=== PATIENT | female | born 1960 | race Caucasian/White ===

== ENCOUNTER 2023-08-29 20:54 | Emergency (ER) | payer SELFPAY ==
[2023-08-29 20:55] VITALS: BP 171/92; PULSE 113; RESP 20; TEMP 36.9; O2SAT 95; BMI 39.7
--- NOTE | 2023-08-29 21:01 | ECG_ITS ---
[facility] Test Date: 2023-08-29 Pat Name: BEATRICE SU Department: Room: - Gender: Female Field Advisor: : 1960 Requested By: 0923 Order Number: [id number] Reading MD: CLARICE BETANCOURT Measurements Intervals [place] Rate: 104 P: 53 TN: 150 QRS: 11 QRSD: 72 T: 64 QT: 330 QTc: 390 Interpretive Statements 1120 Sinus tachycardia 4068 Nonspecific [place] abnormality 8102 Low QRS voltage in chest leads 9140 abnormal rhythm ECG No previous ECG available for comparison Electronically Signed On 08-30-2023 17:53:39 EST by CLARICE BETANCOURT
--- NOTE | 2023-08-29 21:01 | CT_ITS ---
[address] [address] Patient Name: BEATRICE SU MRN: [id number] date: 1960 Sex: F Assigned Patient Location: ER Current Patient Location: Accession/Order Number: [id number] Exam Date: 08/29/2023 21:46 Report Date: 08/29/2023 22:12 At the request of: WILLIAM PERKINS Procedure: CT abdomen pelvis wo con EXAMINATION: CT abdomen pelvis wo con HISTORY: stents ; recent left ureteral stent placement; nausea, weakness, diarrhea EXAMINATION: CT abdomen pelvis wo con COMPARISON: CT abdomen pelvis 06/20/2022 TECHNIQUE: Axial, Coronal, and Sagittal images were obtained without and/or with IV contrast as indicated by examination type. Dose reduction techniques were achieved by using automated exposure control and/or adjustment of mA and/or kV according to patient size and/or use of iterative reconstruction technique. FINDINGS: LUNG BASES: No visible pulmonary or pleural disease. LIVER: No enlargement, atrophy, suspicious density, or significant focal lesion. BILIARY: Cholecystectomy. PANCREAS: No lesion, fluid collection, or abnormal duct dilatation. SPLEEN: No enlargement or focal lesion. ADRENALS: No mass or enlargement. KIDNEYS: Mild stranding and edema surrounding the left kidney. Mild haziness of the fat within the renal hilum. Ureteral stents appears to be in good position. Mild periureteral stranding. No stones, obstructive uropathy, or appreciable mass. BOWEL/MESENTERY: No visible mass, obstruction, or bowel wall thickening. Normal appendix. AORTA/VASCULAR: No aneurysm or dissection. RETROPERITONEUM: No mass or adenopathy. LYMPH NODES: No adenopathy. URINARY BLADDER: Trace amount of free air within urinary bladder, likely secondary to recent left ureter stent placement. PELVIC ORGANS: No visible mass. Pelvic organs appropriate for patient age. ABDOMINAL WALL: Small fat filled indirect right inguinal hernia without strangulation or bowel involvement. BONES: L5-S1 marked degenerative disc disease. OTHER: Negative. CT/CT abdomen pelvis wo con IMPRESSION: 1. Mild left perinephric stranding and periureteral stranding likely residual from recent hydronephrosis with subsequent stent placement and stone removal (per patient history). 2. Left hilar nephritis is not completely excluded, but felt less likely. 3. Left inguinal hernia without strangulation or bowel involvement. 4. L5-S1 marked degenerative disc disease. Electronically authenticated by: CHANTEL HENDERSON Date: 08/29/2023 22:12
[2023-08-29 21:23] LABS: Basophils Percent Auto 0.3 % (0.2-2.0); Eosinophils Absolute Auto 0.1 10^3/uL (0.0-0.7); Eosinophils Percent Auto 0.7 % (0.9-7.0); Hematocrit 38.5 % (36.0-48.0); Hemoglobin 12.7 g/dL (12.0-16.0); Immature Granulocytes Abs Auto 0.13 10^3/uL (0.00-0.03); Lymphocytes Absolute Auto 1.2 10^3/uL (1.2-3.8); Lymphocytes Percent Auto 9.5 % (20.5-60.0); Mean Corpuscular Hemoglobin 29.7 pg (26.7-34.0); Mean Platelet Volume 10.8 fL (9.5-13.5); Monocytes Absolute Auto 1.2 10^3/uL (0.3-0.8); Monocytes Percent Auto 9.6 % (1.7-12.0); Neutrophils Absolute Auto 9.9 10^3/uL (1.4-6.5); Neutrophils Percent Auto 78.9 % (43.0-75.0); Platelet Count 289 10^3/uL (150-450); Red Blood Count 4.28 10^6/uL (4.20-5.40); Red Cell Distribution Width 13.5 % (11.0-15.0); White Blood Count 12.6 10^3/uL (4.0-11.0)
[2023-08-29] MEDS: 0.9 % SODIUM CHLORIDE 1,000 ML 1000 ML IV (21:27)
[2023-08-29] MEDS: ONDANSETRON PF 4 MG/2 ML VIAL IV (21:27)
[2023-08-29 21:39] LABS: Alanine Aminotransferase 20 U/L (14-59); Albumin Globulin Ratio 0.6; Albumin Level 2.8 g/dL (3.4-5.0); Alkaline Phosphatase 64 U/L (46-116); Anion Gap 17.7; Aspartate Amino Transferase 52 U/L (15-37); BUN Creatinine Ratio 12.9; Bilirubin Total 0.9 mg/dL (0.2-1.0); Calcium 8.6 mg/dL (8.5-10.1); Carbon Dioxide 19.9 mmol/L (21.0-32.0); Chloride 97 mmol/L (98-107); Estimated GFR (African America >60 (>=60); Estimated GFR (Non-African Ame 55 (>=60); Globulin 4.6 g/dL; Glucose 253 mg/dL (74-106); Potassium 4.6 mmol/L (3.5-5.1); Sodium 130 mmol/L (136-145); Total Protein 7.4 g/dL (6.4-8.2); Troponin I High Sensitivity 4.2 pg/mL (4.0-51.3)
[2023-08-29 21:45] LABS: Lactate/Lactic Acid 2.1 mmol/L (0.4-2.0)
--- NOTE | 2023-08-29 21:48 | PC.NURSE ---
Caryn from lab called with lactic 2.1 provider aware
[2023-08-29 21:58] VITALS: BP 156/77; PULSE 100; RESP 20; O2SAT 96
[2023-08-29 22:18] LABS: SARS-CoV-2 Ag NEGATIVE (NEGATIVE)
--- NOTE | 2023-08-29 23:20 | ED.GENADUL1 ---
HPI - General Adult General Chief complaint: Nausea/Vomiting/Diarrhea Stated complaint: KIDNEY STONE Time Seen by Provider: 08/29/23 20:59 Source: patient and family Mode of arrival: ambulance Limitations: no limitations History of Present Illness HPI narrative: 63-year-old female presents here with chief complaint nausea vomiting diarrhea. She had a history of kidney stent placement for a stone two days ago. She states she's been nauseous since the procedure. She is to have the stent removed tomorrow. Patient does not appear toxic. She denies any difficulty with urination denies bloody urine she denies back pain. Patient states she's had nausea and vomiting with diarrhea. She is afebrile upon arrival in time per toxic but does appear to not feel wwell. Related Data Home Medications Medication Instructions Recorded Confirmed ciprofloxacin HCl 500 mg tablet 500 mg PO DAILY 08/29/23 08/29/23 metformin 500 mg tablet,extended 500 mg PO BID 08/29/23 08/29/23 release 24 hr Allergies Allergy/AdvReac Type Severity Reaction Status Date / Time No Known Drug Allergies Allergy Verified 08/29/23 21:26 Review of Systems ROS Narrative All Systems are negative except as noted/marked.All systems reviewed and otherwise negative PFSH PFSH Social History Smoking status: Never smoker Exam Narrative Exam Narrative: Nurses note and vital signs reviewed and patient is not hypoxic. General: The patient appears well and in no apparent distress. Patient is resting comfortably on cart. Skin: Warm, dry, no pallor noted. There is no rash noted. Head: Normocephalic, atraumatic Eye: Normal conjunctiva, no drainage, EOMI. PERRL Ears, Nose, Mouth, and Throat: oral mucosa is moist. Nares patent. Mouth without vesicles. Ear canals patent. Tm's without Erythema Back: non-tender, no CVA tenderness bilaterally to percussion. GI: Normal bowel sounds, no tenderness to palpation, no masses appreciated. No rebound, guarding, or rigidity noted. Musculoskeletal: The patient has no evidence of calf tenderness, no pitting edema, symmetrical pulses noted bilaterally Neurological: A&O x4, normal speech Psychiatric: Cooperative Constitutional Vital Signs, click to edit/add: Last Vital Signs Temp 98.4 F 08/29/23 20:55 Pulse 100 H 08/29/23 21:58 Resp 20 08/29/23 21:58 BP 156/77 H 08/29/23 21:58 Pulse Ox 96 08/29/23 21:58 O2 Del Method Room Air 08/29/23 20:55 Course Vital Signs Vital signs: Vital Signs Temperature 98.4 F 08/29/23 20:55 Pulse Rate 113 H 08/29/23 20:55 Respiratory Rate 20 08/29/23 20:55 Blood Pressure 171/92 H 08/29/23 20:55 Pulse Oximetry 95 08/29/23 20:55 Oxygen Delivery Method Room Air 08/29/23 20:55 Temperature 98.4 F 08/29/23 20:55 Pulse Rate 100 H 08/29/23 21:58 Respiratory Rate 20 08/29/23 21:58 Blood Pressure 156/77 H 08/29/23 21:58 Pulse Oximetry 96 08/29/23 21:58 Oxygen Delivery Method Room Air 08/29/23 20:55 Medical Decision Making Differential Diagnosis Differential Diagnosis: Kidney stone, urinary tract infection, dehydration Medical Records Medical records reviewed: Yes I reviewed the patient's medical records Medical records narrative: Patient presented here chief complaint of nausea vomiting. Patient received IV fluids. She's had a renal stent placement 2 days ago. stent to be removed tomorrow. Denies any back pain or flank pain. pt urinating with out difficuly. CBC showed a mildly elevated white blood cell count 12.6 which is consistent with her vomiting. She is afebrile. Low sodium of 130 initially. Patient was given IV liter of fluids. SHe says she feels a hundred percent better here in the emergency room. She wishes to go home. She does not appear toxic. Shedoes not apprear septic and has remained afebrile. She feels comfortable going home. Patient is currently taking ciprofloxacin we will send the urine for culture. Patient will follow-up with her primary care physician and urology Dr. Capellan. If symptoms change or worsen patient will return back here to the hospital. Lab Data Lab results reviewed: Yes I reviewed the patient's lab results Labs: Lab Results 08/29/23 08/29/23 08/29/23 Range/Units 21:10 21:58 23:15 WBC 12.6 H (4.0-11.0) 10^3/uL RBC 4.28 (4.20-5.40) 10^6/uL Hgb 12.7 (12.0-16.0) g/dL Hct 38.5 (36.0-48.0) % MCV 90.0 (81.0-99.0) fL MCH 29.7 (26.7-34.0) pg MCHC 33.0 (29.9-35.2) g/dL RDW 13.5 (11.0-15.0) % Plt Count 289 (150-450) 10^3/uL MPV 10.8 (9.5-13.5) fL Neut % (Auto) 78.9 H (43.0-75.0) % Lymph % (Auto) 9.5 L (20.5-60.0) % [place] % (Auto) 9.6 (1.7-12.0) % Eos % (Auto) 0.7 L (0.9-7.0) % Baso % (Auto) 0.3 (0.2-2.0) % Neut # (Auto) 9.9 H (1.4-6.5) 10^3/uL Lymph # (Auto) 1.2 (1.2-3.8) 10^3/uL [place] # (Auto) 1.2 H (0.3-0.8) 10^3/uL Eos # (Auto) 0.1 (0.0-0.7) 10^3/uL Baso # (Auto) 0.0 (0.0-0.1) 10^3/uL Abs Immat Gran (auto) 0.13 H (0.00-0.03) 10^3/uL Imm/Tot Granulo (auto) 1.0 H (0.0-0.5) % Sodium 130 L (136-145) mmol/L Potassium 4.6 (3.5-5.1) mmol/L Chloride 97 L (98-107) mmol/L Carbon Dioxide 19.9 L (21.0-32.0) mmol/L Anion Gap 17.7 BUN 13.0 (7.0-18.0) mg/dL Creatinine 1.01 (0.55-1.02) mg/dL Est GFR ( Amer) >60 (>=60) Est GFR (Non-Af Amer) 55 L (>=60) BUN/Creatinine Ratio 12.9 Glucose 253 H (74-106) mg/dL Lactate 2.1 H (0.4-2.0) mmol/L Calcium 8.6 (8.5-10.1) mg/dL Total Bilirubin 0.9 (0.2-1.0) mg/dL AST 52 H (15-37) U/L ALT 20 (14-59) U/L Alkaline Phosphatase 64 (46-116) U/L Troponin I High Sens 4.2 (4.0-51.3) pg/mL Total Protein 7.4 (6.4-8.2) g/dL Albumin 2.8 L (3.4-5.0) g/dL Globulin 4.6 g/dL Albumin/Globulin Ratio 0.6 Urine Color Yellow (YELLOW) Urine Clarity Clear (CLEAR) Urine pH 5.5 (5.0-9.0) Ur Specific [place] >=1.030 A (1.005-1.025) Urine Protein 100 A (NEG/TRACE) mg/dL Urine Glucose (UA) 250 A (NEGATIVE) mg/dL Urine Ketones 15 A (NEGATIVE) mg/dL Urine Occult Blood Large A (NEGATIVE) Urine Nitrite Negative (NEGATIVE) Urine Bilirubin Negative (NEGATIVE) Urine Urobilinogen 0.2 (0.2-1.0) EU/dL Ur Leukocyte Esterase Moderate A (NEGATIVE) Urine RBC 5-10 A (0-2) #/HPF Urine WBC 10-20 A (NONE SEEN) #/HPF Ur Squamous Epith Cells Few A (NONE/RARE) #/LPF Urine Crystals None seen (None Seen) #/HPF Urine Bacteria Small A (NONE SEEN) #/HPF Urine Casts None seen (NONE SEEN) #/LPF Urine Mucus None seen (NONE SEEN) Urine Yeast Seen A (NONE SEEN) Ur Culture Indicated? Already ordered SARS-CoV-2 (PCR) Negative (NEGATIVE) SARS-CoV-2 RNA (PAM) Not detected (NOT DETECTE) Imaging Data CT scan - abdomen: Radiologist's impression: diarrhea EXAMINATION: CT abdomen pelvis wo con COMPARISON: CT abdomen pelvis 06/20/2022 TECHNIQUE: Axial, Coronal, and Sagittal images were obtained without and/or with IV contrast as indicated by examination type. Dose reduction techniques were achieved by using automated exposure control and/or adjustment of mA and/or kV according to patient size and/or use of iterative reconstruction technique. FINDINGS: LUNG BASES: No visible pulmonary or pleural disease. LIVER: No enlargement, atrophy, suspicious density, or significant focal lesion. BILIARY: Cholecystectomy. PANCREAS: No lesion, fluid collection, or abnormal duct dilatation. SPLEEN: No enlargement or focal lesion. ADRENALS: No mass or enlargement. KIDNEYS: Mild stranding and edema surrounding the left kidney. Mild haziness of the fat within the renal hilum. Ureteral stents appears to be in good position. Mild periureteral stranding. No stones, obstructive uropathy, or appreciable mass. BOWEL/MESENTERY: No visible mass, obstruction, or bowel wall thickening. Normal appendix. AORTA/VASCULAR: No aneurysm or dissection. RETROPERITONEUM: No mass or adenopathy. LYMPH NODES: No adenopathy. URINARY BLADDER: Trace amount of free air within urinary bladder, likely secondary to recent left ureter stent placement. PELVIC ORGANS: No visible mass. Pelvic organs appropriate for patient age. ABDOMINAL WALL: Small fat filled indirect right inguinal hernia without strangulation or bowel involvement. BONES: L5-S1 marked degenerative disc disease. OTHER: Negative. IMPRESSION: 1. Mild left perinephric stranding and periureteral stranding likely residual from recent hydronephrosis with subsequent stent placement and stone removal (per patient history). 2. Left hilar nephritis is not completely excluded, but felt less likely. 3. Left inguinal hernia without strangulation or bowel involvement. 4. L5-S1 marked degenerative disc disease. Electronically authenticated by: CHANTEL HENDERSON Date: 08/29/2023 22:12 ECG Data Attestation: ?I have reviewed the pertinent ECG results. Interpretation: 1941 EKG shows sinus tachycardia with 104 bpm [place] interval 150 ms QRS duration 72 ms no STEMI Discharge Plan Discharge Chief Complaint: Nausea/Vomiting/Diarrhea Clinical Impression: Dehydration Patient Disposition: Home, Self-Care Time of Disposition Decision: 23:06 Prescriptions / Home Meds: No Action ciprofloxacin HCl 500 mg tablet 500 mg PO DAILY metformin 500 mg tablet extended release 24 hr 500 mg PO BID Instructions: Dehydration (ED) Stand Alone Forms: Portal Instructions Referrals: CYNTHIA PHILLIPS [Primary Care Provider] - 09/01/23 (follow up in the next 48 hours) Discharge Date/Time: 08/29/23 23:28
[2023-08-29 23:35] LABS: Bilirubin Urine NEGATIVE (NEGATIVE); Blood Urine LARGE (NEGATIVE); Clarity Urine CLEAR (CLEAR); Color Urine YELLOW (YELLOW); Glucose Urine UA 250 mg/dL (NEGATIVE); Ketones Urine 15 mg/dL (NEGATIVE); Leukocyte Esterase Urine MODERATE (NEGATIVE); Nitrite Urine NEGATIVE (NEGATIVE); Protein Urine 100 mg/dL (NEG/TRACE); Specific Gravity Urine >=1.030 (1.005-1.025); Urobilinogen Urine 0.2 EU/dL (0.2-1.0); pH Urine 5.5 (5.0-9.0)
[2023-08-29 23:41] LABS: Bacteria Urine SMALL #/HPF (NONE SEEN); Cast Seen? NONE SEEN #/LPF (NONE SEEN); Crystals Seen? None Seen #/HPF (None Seen); Mucus Urine NONE SEEN (NONE SEEN); Squamous Epithelial Cell Urine FEW #/LPF (NONE/RARE); Urine Culture Indicated ALREADY ORDERED
[2023-08-30 14:47] LABS: SARS-CoV-2 NAA NOT DETECTED (NOT DETECTE)
== END 2023-08-29 23:28 | disposition home or self-care (01) ==
PROVIDERS: Physician Assistant; Emergency Provider Internal Medicine; PCP Nurse Practitioner Family
DX: E86.0 Dehydration (principal); Z79.84 Long term (current) use of oral hypoglycemic drugs; Z20.822 Contact with and (suspected) exposure to COVID-19; Z87.442 Personal history of urinary calculi; Z79.2 Long term (current) use of antibiotics
CPT/HCPCS: 36415; 74176; 80053; 81001; 83605; 84484; 85025; 87086; 87635; 87811; 93005; 96361; 96374; 99285